=== PATIENT | female | born 1990 | race African-American/Black ===

== ENCOUNTER 2017-04-10 12:55 | Emergency (ER) | payer MEDICAID ==
[~2017-04-10] VITALS: Ht 162.6 cm; Wt 76.5 kg
[2017-04-10] MEDS ORDERED: IBUPROFEN 400MG TABLET PO ONE (15:45)
[2017-04-10 15:58] LABS: CLARITY URINE CLEAR (CLEAR); COLOR URINE YELLOW (YELLOW); KETONES URINE NEGATIVE (NEGATIVE); LEUKOCYTE ESTERASE URINE NEGATIVE (NEGATIVE); NITRITE URINE NEGATIVE (NEGATIVE); OCCULT BLOOD URINE NEGATIVE (NEGATIVE); PROTEIN URINE NEGATIVE (NEGATIVE)
[2017-04-10] MEDS ORDERED: LIDOCAINE HCL 1% 20ML VIAL (Pyxis) INJ INFIL ONE (18:00)
[2017-04-10 18:32] VITALS: BP 108/66
== END 2017-04-10 18:34 | disposition home or self-care (01) ==
LOC: ER 14:16
DX: L02.214 Cutaneous abscess of groin (principal)
CPT/HCPCS: 81003; 99283; Z7610